=== PATIENT | male | born 1940 | race Hispanic/Latino ===

== ENCOUNTER 2020-09-20 07:38 | Outpatient (CLI) | payer MEDICARE ==
--- NOTE | 2020-09-20 08:42 | Cat Scan Report ---
CT HEAD WITHOUT CONTRAST INDICATION : CLOSED HEAD INJURY,INITIAL ENCOUNTER. TECHNIQUE: Axial imaging performed from the skull apex through the skull base without the use of con trast. Sagittal and coronal reformatted images. All CT scans at this location are performed using C T dose reduction for ALARA by means of automated exposure control. COMPARISON: 09/07/2020 FINDINGS: Parenchyma: No acute intracranial hemorrhage or parenchymal abnormality. Mild diffuse cortical volum e loss and minimal chronic periventricular white matter changes appear age appropriate. No chronic in farct. The subdural spaces in the bilateral frontal regions are prominent measuring up to 6 mm in wid th. Small acute subdural hemorrhage on the right side noted on the previous exam has resolved. There are however small to medium sized chronic appearing bilateral subdural collections on today's exam me asuring up to 6 mm in width and frontal regions. This collection appears slightly increased on the ri ght side and new on the left side. Ventricles: Ventricles are normal in size and appear symmetric. Bones: No acute osseous abnormality. Sinuses: Sinuses and mastoid air cells are clear. Soft tissues: Soft tissues including the orbits appear normal. IMPRESSION: Bilateral chronic appearing subdural collections are identified, increased on the right s live and new on the left side. Small right frontal acute subdural hemorrhage or cortical hemorrhage wilcox s resolved since 09/07/2020 exam. Signer Name: Braeden Alvarado Jr, MD Signed: 09/20/2020 8:37 AM Workstation Name: [id number]
== END 2020-09-20 07:39 | disposition home or self-care (01) ==
LOC: CT 07:38
PROVIDERS: ATTEND Psychiatry & Neurology Neurology
DX: S09.90XA Unspecified injury of head, initial encounter (principal); R90.82 White matter disease, unspecified; X58.XXXA Exposure to other specified factors, initial encounter; Y93.89 Activity, other specified; Y92.89 Other specified places as the place of occurrence of the external cause; Y99.8 Other external cause status
CPT/HCPCS: 70450

== ENCOUNTER 2020-11-02 11:46 | Outpatient (CLI) | payer MEDICARE ==
--- NOTE | 2020-11-02 13:39 | Cat Scan Report ---
CT HEAD WITHOUT CONTRAST INDICATION / CLINICAL INFORMATION: CLOSED HEAD INJURY. TECHNIQUE: All CT scans at this location are performed using CT dose reduction for ALARA by means of automated e xposure control. COMPARISON: 10/06/2020 FINDINGS: HEMORRHAGE: Bilateral subdural collections are again noted, now with greater attenuation (HU 30, comp ared to prior at 17). The right subdural collection along the frontal convexity, largest diameter 2.1 cm (previously 0.9 cm) worsened since prior exam.The left subdural is measures 0.[address], similar to prior. EXTRA-AXIAL SPACES: Effacement of sulci and gyri secondary to bilateral subdural collections. VENTRICULAR SYSTEM: Worsened effacement of the right lateral ventricle. CEREBRAL PARENCHYMA: No significant abnormality. No acute territorial infarct. MIDLINE SHIFT OR HERNIATION: Mild 3 mm midline shift to the left. CEREBELLUM / BRAINSTEM: No significant abnormality. ORBITS: Normal as visualized. SOFT TISSUES of HEAD: No significant abnormality. CALVARIUM: No significant abnormality. PARANASAL SINUSES / MASTOID AIR CELLS: Normal as visualized. ADDITIONAL FINDINGS: None. IMPRESSION: 1. Interval worsening of bilateral subdural hematomas, most pronounced on the right when compared to prior exam 10/06/2020. There is now minimal leftward midline shift at 3 mm. 2. Additional findings are relatively unchanged from prior exam. CRITICAL RESULT: Time of Discovery (COMB FIXER/CDT): 1220 Time of Communication (COMB FIXER/CDT): 1222 Licensed Practitioner Receiving Report: Dr. Jackson, [facility] Read-Back Performed: Yes. Signer Name: Maycol Ortega MD Signed: 11/02/2020 1:34 PM Workstation Name: [id number]
== END 2020-11-02 11:47 | disposition home or self-care (01) ==
LOC: CT 11:46
PROVIDERS: ATTEND Psychiatry & Neurology Neurology
DX: S09.90XA Unspecified injury of head, initial encounter (principal); X58.XXXA Exposure to other specified factors, initial encounter; Y93.89 Activity, other specified; Y99.8 Other external cause status
CPT/HCPCS: 70450

== ENCOUNTER 2020-11-30 12:27 | Outpatient (CLI) | payer MEDICARE ==
--- NOTE | 2020-11-30 13:37 | Cat Scan Report ---
CT head/brain wo con INDICATION: CHRONIC SUBDURAL HEMATOMA. TECHNIQUE: Routine CT head. All CT scans at this location are performed using CT dose reduction for A GRISELDA by means of automated exposure control. COMPARISON: 11/09/2020 FINDINGS: Intracranial: Resolution of prior seen pneumocephalus. There are bilateral subdural collections conta ining septations consistent with chronic component. There is new hyperattenuating component seen in t he left greater than right collections consistent with acute components. The left subdural collection is slightly larger than prior examination. The right subdural collection appears slightly smaller. N o acute territorial infarction. No hydrocephalus. Mild rightward subfalcine herniation. Sinuses: Paranasal sinuses and mastoid air cells are essentially clear. Orbits: Globes are intact. Calvarium: No acute fracture. IMPRESSION: 1. Acute on chronic subdural hematomas with the left appearing slightly larger than prior and the ri ght appearing slightly smaller than prior. Signer Name: Elan Clark MD Signed: 11/30/2020 1:33 PM Workstation Name: [id number]
== END 2020-11-30 12:28 | disposition home or self-care (01) ==
LOC: CT 12:27
PROVIDERS: ATTEND Psychiatry & Neurology Neurology
DX: I62.03 Nontraumatic chronic subdural hemorrhage (principal)
CPT/HCPCS: 70450

== ENCOUNTER 2020-12-22 07:26 | Outpatient (CLI) | payer MEDICARE ==
--- NOTE | 2020-12-22 08:25 | Cat Scan Report ---
CT head/brain wo con INDICATION / CLINICAL INFORMATION: 80 years Male; CHRONIC SUBDURAL HEMATOMA Surgery 12/14/20. TECHNIQUE: Routine CT head without contrast. All CT scans at this location are performed using CT dos e reduction for ALARA by means of automated exposure control. COMPARISON: 11/30/2020 FINDINGS: BRAIN / INTRACRANIAL CONTENTS: Bilateral subdural collections seen. Small dixon hole seen in the right . The collection on the left is increased in size from prior, but has a chronic appearance. Small col lection on the right is improved in size when compared with prior exam, although acute/subacute blood products are suggested. There is focal mass effect on the left cerebral hemisphere and minimal left to right midline shift, w ith no concern for herniation. No significant mass effect on the right cerebral hemisphere. Basal cis terns remain well-visualized. Otherwise, no acute hemorrhage, mass effect, midline shift, hydrocephalus, or acute, large territoria l infarct. Mild to moderate, diffuse cerebral and cerebellar atrophy. There are mild areas of decreased attenuation in the white matter of the cerebral hemispheres. These are nonspecific findings and may be related to microangiopathy (hypertension, diabetes, atheroscleros is), given the patient's age. It might be difficult to evaluate for small areas of ischemia without d iffusion imaging by MRI. CRANIOCERVICAL JUNCTION: No significant abnormality. ORBITS: No significant abnormality of visualized orbits. SINUSES / MASTOIDS: Mild to moderate mucosal thickening seen in the ethmoids. Patient may have had pr ior sinus surgery. ADDITIONAL FINDINGS: Atherosclerotic disease is seen in the anterior and posterior circulation. IMPRESSION: 1. Bilateral subdural collections as described above. Signer Name: Everardo Monk MD, III Signed: 12/22/2020 8:21 AM Workstation Name: [id number]
== END 2020-12-22 07:27 | disposition home or self-care (01) ==
LOC: CT 07:26
PROVIDERS: ATTEND Psychiatry & Neurology Neurology
DX: I62.03 Nontraumatic chronic subdural hemorrhage (principal); I70.0 Atherosclerosis of aorta
CPT/HCPCS: 70450

== ENCOUNTER 2021-01-03 12:47 | Outpatient (CLI) | payer MEDICARE ==
--- NOTE | 2021-01-03 14:50 | Cat Scan Report ---
CT head/brain wo con INDICATION / CLINICAL INFORMATION: 80 years Male; SUBDURAL HEMATOMA. TECHNIQUE: Routine CT head without contrast. All CT scans at this location are performed using CT dos e reduction for ALARA by means of automated exposure control. COMPARISON: The study is compared to previous CT of 12/22/2020. FINDINGS: BRAIN / INTRACRANIAL CONTENTS: There is a persistent subdural collection, most notable along the left frontal region measure approximately 1.57 m in greatest transverse dimension. This finding has not s ignificantly changed from the earlier CT of 12/23/2019. There is continued mass effect with sulcal eff acement along with mild midline shift. There are postsurgical changes on the right with right frontal dixon hole at. There is a smaller right subdural collection measuring approximately 4-5 mm transversely which is also stable in appearance. There is mild mass effect upon the anterior left lateral ventricle which is unchanged. There is josué nued mild cerebral and cerebellar atrophy. The increased attenuation along the medial margin of the l eft subdural collection is also unchanged. ORBITS: No significant abnormality of visualized orbits. SINUSES / MASTOIDS: No significant abnormality in the visualized paranasal sinuses or mastoid air adrian ls. CRANIOCERVICAL JUNCTION: No significant abnormality. ADDITIONAL FINDINGS: None. IMPRESSION: 1. There is a persistent left subdural collection with associated mass effect as detailed above witho ut significant interval change from 12/22/2020. 2. There are postsurgical changes on the right with smaller underlying a right subdural collection wh ich is also unchanged. Signer Name: Monroe Bridges MD Signed: 01/03/2021 2:46 PM Workstation Name: [id number]
== END 2021-01-03 12:48 | disposition home or self-care (01) ==
LOC: CT 12:47
PROVIDERS: ATTEND Psychiatry & Neurology Neurology
DX: I62.03 Nontraumatic chronic subdural hemorrhage (principal); G31.9 Degenerative disease of nervous system, unspecified
CPT/HCPCS: 70450

== ENCOUNTER 2021-01-16 12:01 | Outpatient (CLI) | payer MEDICARE ==
--- NOTE | 2021-01-16 14:23 | Cat Scan Report ---
CT HEAD WITHOUT CONTRAST INDICATION : CHRONIC SUBDURAL HEMATOMA. TECHNIQUE: Axial imaging performed from the skull apex through the skull base without the use of con trast. Sagittal and coronal reformatted images. All CT scans at this location are performed using C T dose reduction for ALARA by means of automated exposure control. COMPARISON: 01/03/2021 FINDINGS: Parenchyma: Previously described chronic appearing left frontal subdural collection appears unchange d in size, contour and density measuring up to 1.5 cm in greatest thickness. Smaller right frontal arnold bdural collection or dural thickening measuring less than 5 mm is also unchanged. There is no evidenc e for acute extra-axial collection. There is mild mass effect on the left frontal lobe which is uncha nged. The brain parenchyma attenuation and its pimentel-white interface remain within normal limits. No e vidence for hemorrhage, mass or midline shift. Ventricles: Ventricles are normal in size and appear symmetric. Bones: No acute osseous abnormality. Sinuses: Sinuses and mastoid air cells are clear. Soft tissues: Soft tissues including the orbits appear normal. IMPRESSION: No change since 01/03/2021 exam. Signer Name: Braeden Alvarado Jr, MD Signed: 01/16/2021 2:18 PM Workstation Name: [id number]
== END 2021-01-16 12:02 | disposition home or self-care (01) ==
LOC: CT 12:01
PROVIDERS: ATTEND Psychiatry & Neurology Neurology
DX: I62.03 Nontraumatic chronic subdural hemorrhage (principal)
CPT/HCPCS: 70450

== ENCOUNTER 2021-02-13 09:51 | Outpatient (CLI) | payer MEDICARE ==
--- NOTE | 2021-02-13 13:23 | Cat Scan Report ---
CT HEAD WITHOUT CONTRAST INDICATION : CHRONIC SUBDURAL HEMATOMA. TECHNIQUE: Axial imaging performed from the skull apex through the skull base without the use of con trast. Sagittal and coronal reformatted images. All CT scans at this location are performed using C T dose reduction for ALARA by means of automated exposure control. COMPARISON: None FINDINGS: Parenchyma: Moderate sized chronic appearing left subdural collection appears unchanged in size and density since 01/16/2021. This collection measures up to 1.5 cm in greatest thickness in the left front al region. Mild dural thickening on the right side is also unchanged. Volume loss and chronic white m atter changes are stable. No acute parenchymal abnormality is detected. No new extra-axial collection . Ventricles: Ventricles are normal in size and appear symmetric. Bones: No acute osseous abnormality. Sinuses: Sinuses and mastoid air cells are clear. Soft tissues: Soft tissues including the orbits appear normal. IMPRESSION: Stable findings since 01/16/2021. Signer Name: Braeden Alvarado Jr, MD Signed: 02/13/2021 1:18 PM Workstation Name: [id number]
== END 2021-02-13 09:52 | disposition home or self-care (01) ==
LOC: CT 09:51
PROVIDERS: ATTEND Psychiatry & Neurology Neurology
DX: I62.03 Nontraumatic chronic subdural hemorrhage (principal)
CPT/HCPCS: 70450

== ENCOUNTER 2021-03-20 11:19 | Outpatient (CLI) | payer MEDICARE ==
--- NOTE | 2021-03-20 13:02 | Cat Scan Report ---
CT HEAD WITHOUT CONTRAST INDICATION : CHRONIC SUBDURAL HEMATOMA. TECHNIQUE: Axial imaging performed from the skull apex through the skull base without the use of con trast. Sagittal and coronal reformatted images. All CT scans at this location are performed using C T dose reduction for ALARA by means of automated exposure control. COMPARISON: None FINDINGS: Parenchyma: Moderate chronic appearing left subdural collection appears unchanged in size and densit y since 02/13/2021 exam. This collection measures up to 1.5 cm in greatest thickness on the coronal ref ormatted images. No new acute component is appreciated. Moderate volume loss and chronic white matter changes are again noted and unchanged. There is no significant midline shift due to volume loss. No chronic infarct is identified. Mild focal dural thickening in the right frontal region is again noted and unchanged. Ventricles: Ventricles are normal in size and appear symmetric. Bones: No acute osseous abnormality. Sinuses: Sinuses and mastoid air cells are clear. Soft tissues: Soft tissues including the orbits appear normal. IMPRESSION: No significant change since 02/13/2021 exam. Signer Name: Braeden Alvarado Jr, MD Signed: 03/20/2021 12:58 PM Workstation Name: [id number]
== END 2021-03-20 11:20 | disposition home or self-care (01) ==
LOC: CT 11:19
PROVIDERS: ATTEND Psychiatry & Neurology Neurology
DX: I62.03 Nontraumatic chronic subdural hemorrhage (principal)
CPT/HCPCS: 70450

== ENCOUNTER 2021-06-18 09:22 | Outpatient (CLI) | payer MEDICARE ==
--- NOTE | 2021-06-18 10:24 | Cat Scan Report ---
NONENHANCED CT SCAN OF THE HEAD: INDICATION / CLINICAL INFORMATION: 80 years Male; CHRONIC SUBDURAL HEMATOMA. TECHNIQUE: Routine CT head without contrast. All CT scans at this location are performed using CT dos e reduction for ALARA by means of automated exposure control. COMPARISON: CT scan of the head from 03/20/2021, 02/13/2021 and 01/16/2021 FINDINGS: BRAIN / INTRACRANIAL CONTENTS: No significant change in the chronic subdural collection on the left side extending from the frontal to parietal region; no change in the mildly effaced cortical sulci in the high left convexity; no mid line shift; CT attenuation of the chronic subdural collection has not changed; maximum thickness of t he subdural collection 1.6 cm CRANIOCERVICAL JUNCTION: No significant abnormality. ORBITS: No significant abnormality of visualized orbits. SINUSES / MASTOIDS: No significant abnormality of the visualized paranasal sinuses or mastoid air adrian ls. ADDITIONAL FINDINGS: None. IMPRESSION: Chronic left subdural collection unchanged Signer Name: Isadora Patton MD Signed: 06/18/2021 10:20 AM Workstation Name: [id number]
== END 2021-06-18 09:23 | disposition home or self-care (01) ==
LOC: CT 09:22
PROVIDERS: ATTEND Psychiatry & Neurology Neurology
DX: I62.03 Nontraumatic chronic subdural hemorrhage (principal)
CPT/HCPCS: 70450

== ENCOUNTER 2021-07-26 10:32 | Outpatient (CLI) | payer MEDICARE ==
--- NOTE | 2021-07-26 11:38 | Cat Scan Report ---
CT HEAD WITHOUT CONTRAST INDICATION : CHRONIC SUBDURAL HEMATOMA . TECHNIQUE: Axial imaging performed from the skull apex through the skull base without the use of con trast. Sagittal and coronal reformatted images. All CT scans at this location are performed using C T dose reduction for ALARA by means of automated exposure control. COMPARISON: 06/18/2021 FINDINGS: Parenchyma: Previously described left subdural collection appears stable in size and contour measuri ng up to 1.2 cm in thickness on the coronal CT images. There is a small amount of hyperdense fluid la yering posteriorly within the subdural collection which appears to represent an acute to subacute are a of hemorrhage since the previous exam. There is mild mass effect on the left cerebral hemisphere bu t no evidence for significant midline shift. No additional or new subdural collection. Moderate corti [place] volume loss and mild chronic ischemic changes in the white matter are stable. No acute parenchyma l abnormality. Ventricles: Ventricles are normal in size and appear symmetric. Bones: No acute osseous abnormality. Sinuses: Sinuses and mastoid air cells are clear. Soft tissues: Soft tissues including the orbits appear normal. IMPRESSION: Stable size of the left subdural collection since 06/18/2021. There is a small amount of h yperdense fluid layering posteriorly in the left subdural collection which may represent a small amou nt of acute or subacute hemorrhage within this chronic appearing collection. No acute intraparenchyma l abnormality is identified. Signer Name: Braeden Alvarado Jr, MD Signed: 07/26/2021 11:34 AM Workstation Name: [id number]
== END 2021-07-26 10:33 | disposition home or self-care (01) ==
LOC: CT 10:32
PROVIDERS: ATTEND Psychiatry & Neurology Neurology
DX: I62.03 Nontraumatic chronic subdural hemorrhage (principal)
CPT/HCPCS: 70450

== ENCOUNTER 2021-08-09 10:08 | Outpatient (CLI) | payer MEDICARE ==
--- NOTE | 2021-08-09 12:18 | Cat Scan Report ---
CT head/brain wo con INDICATION / CLINICAL INFORMATION: 80 years Male; CHRONIC SUBDURAL HEMATOMA I62.03. TECHNIQUE: Routine CT head without contrast. All CT scans at this location are performed using CT dos e reduction for ALARA by means of automated exposure control. COMPARISON: 07/26/2021 FINDINGS: BRAIN / INTRACRANIAL CONTENTS: Subdural collection along the left cerebral hemisphere persists with s ome component of subacute blood products noted-findings demonstrate interval improvement from prior, although some component of acute blood products more anteriorly cannot entirely be excluded. There is mild mass effect on the left cerebral hemisphere. No significant midline shift. Minimal dural thickening versus a very small subdural collection is seen along the right cerebral hem isphere-also noted on prior exam. This finding is best seen on coronal imaging. No detrimental change from prior. Small dixon hole is seen on the right. Otherwise, no acute hemorrhage, mass effect, midline shift, hydrocephalus, or acute, large territori al infarct. Mild cerebral and cerebellar atrophy. There are mild areas of decreased attenuation in the white matter of the cerebral hemispheres. These are nonspecific findings and may be related to microangiopathy (hypertension, diabetes, atheroscleros is), given the patient's age. It might be difficult to evaluate for small areas of ischemia without d iffusion imaging by MRI. CRANIOCERVICAL JUNCTION: No significant abnormality. ORBITS: No significant abnormality of visualized orbits. SINUSES / MASTOIDS: Visualized paranasal sinuses and mastoid air cells are essentially clear. ADDITIONAL FINDINGS: Minimal atherosclerotic disease is seen in the anterior circulation. IMPRESSION: 1. Subdural collection(s) as described above. While findings have improved overall from prior, a comp onent of acute blood products cannot be excluded, anteriorly in the subdural collection on the left. Relative short-term follow-up is recommended, to ensure resolution of these findings. Signer Name: Everardo Monk MD, III Signed: 08/09/2021 12:14 PM Workstation Name: [id number]
== END 2021-08-09 10:09 | disposition home or self-care (01) ==
LOC: CT 10:08
PROVIDERS: ATTEND Psychiatry & Neurology Neurology
DX: I67.82 Cerebral ischemia (principal); I62.03 Nontraumatic chronic subdural hemorrhage; G31.89 Other specified degenerative diseases of nervous system
CPT/HCPCS: 70450

== ENCOUNTER 2021-09-12 12:55 | Outpatient (CLI) | payer MEDICARE ==
--- NOTE | 2021-09-12 17:03 | Cat Scan Report ---
CT head/brain wo con INDICATION / CLINICAL INFORMATION: 80 years Male; CHRONIC SUBDURAL HEMATOMA I62.03. TECHNIQUE: Routine CT head without contrast. All CT scans at this location are performed using CT dos e reduction for ALARA by means of automated exposure control. COMPARISON: The study is compared to the most recent of numerous previous CT exams dated 08/09/2021. FINDINGS: BRAIN / INTRACRANIAL CONTENTS: There is residual subdural collection along the lateral convexity ozzy uring approximately 1.1 cm in greatest transverse dimension along the high left frontoparietal juncti on. The findings a correlate with the previous CT with continued mild degree of mass effect and sulca l effacement at. There is minimal a degree of midline shift. 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 There is also mild cerebral atrophy with prominence of the ventricular system which appears unchanged . There is no clear CT evidence of interval developing acute hemorrhage. There is again note of a rig ht frontal dixon hole. ORBITS: No significant abnormality of visualized orbits. SINUSES / MASTOIDS: No significant abnormality in the visualized paranasal sinuses or mastoid air adrian ls. CRANIOCERVICAL JUNCTION: No significant abnormality. ADDITIONAL FINDINGS: None. IMPRESSION: 1. There is a persistent left subdural collection as detailed above without significant interval abdi ge from 08/09/2021. 2. 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 Signer Name: Monroe Bridges MD Signed: 09/12/2021 4:59 PM Workstation Name: [id number]
== END 2021-09-12 12:56 | disposition home or self-care (01) ==
LOC: CT 12:55
PROVIDERS: ATTEND Psychiatry & Neurology Neurology
DX: I62.03 Nontraumatic chronic subdural hemorrhage (principal); R90.82 White matter disease, unspecified
CPT/HCPCS: 70450

== ENCOUNTER 2021-11-12 09:51 | Outpatient (CLI) | payer MEDICARE ==
--- NOTE | 2021-11-12 12:27 | Cat Scan Report ---
CT HEAD WITHOUT CONTRAST INDICATION / CLINICAL INFORMATION: I62.03 CHRONIC SUBDURAL HEMATOMA. TECHNIQUE: All CT scans at this location are performed using CT dose reduction for ALARA by means of automated e xposure control. COMPARISON: None available. FINDINGS: Postoperative change: Patient is status post surgical evacuation of a right-sided subdural hematoma. There is no indication of recurrent or residual right-sided subdural hematoma. HEMORRHAGE: Persistent left frontoparietal subdural collection is observed significantly changed in s ize in comparison to recent study 09/12/2021. This collection has decreased slightly in size when sonam red to more remote examination dated 03/20/2021. EXTRA-AXIAL SPACES: There is mild effacement of cortical sulci along the lateral convexity of the lef t frontal lobe. Elsewhere, cortical sulci and sylvian fissures are enlarged reflecting a degree of pa renchymal volume loss which is within normal limits for the patient's age of 80 years. Basilar cister ns have an unremarkable appearance. VENTRICULAR SYSTEM: The third and lateral ventricles are enlarged reflecting presence of age related parenchymal volume loss. CEREBRAL PARENCHYMA: Periventricular and deep white matter lucency is observed. This is probably seco ndary to microvascular ischemic change. There is no indication of recent infarction. No areas of ence phalomalacia are identified. MIDLINE SHIFT OR HERNIATION: There is no indication of midline shift. CEREBELLUM / BRAINSTEM: Brainstem has an unremarkable appearance. Age related cerebellar atrophy is n oted. MIDLINE STRUCTURES:Pituitary gland has an unremarkable appearance. No abnormalities are seen in the p ineal region. INTRACRANIAL VESSELS:Calcified atherosclerotic plaque is present along the course of the cavernous se gments of both internal carotid arteries. Similar findings are seen at the distal vertebral arteries. CRANIOCERVICAL JUNCTION:No significant abnormality. ORBITS: Status post right-sided cataract surgery. No additional abnormality. SOFT TISSUES of HEAD: No significant abnormality. CALVARIUM: Evaluation of bone windows reveals no abnormalities. PARANASAL SINUSES / MASTOID AIR CELLS: Paranasal sinuses are free from inflammatory mucosal disease. Mastoid air cells are normally pneumatized. ADDITIONAL FINDINGS: None. IMPRESSION: 1. No significant interval change in the appearance of a left frontoparietal chronic subdural hematom a compared to most recent previous study 09/12/2021. There has been interval decrease in size of the arnold bdural collection since 03/20/2021. 2. Status post right parietal craniotomy for evacuation of right-sided subdural collection. There is no evidence of recurrent right-sided subdural collection. 3. Age-related involutional changes consistent with the patient's age of 80 years. Signer Name: Benji Javier MD Signed: 11/12/2021 12:22 PM Workstation Name: [id number]
== END 2021-11-12 09:52 | disposition home or self-care (01) ==
LOC: CT 09:51
PROVIDERS: ATTEND Psychiatry & Neurology Neurology
DX: I67.82 Cerebral ischemia (principal); I62.03 Nontraumatic chronic subdural hemorrhage
CPT/HCPCS: 70450